=== PATIENT | male | born 1945 | race Caucasian/White ===

== ENCOUNTER 2017-12-04 18:42 | Emergency (ER) | payer MEDICARE ==
[2017-12-04] MEDS ORDERED: methylPREDNIS SUCC 125 MG/2ML IVP ONE (18:50)
--- NOTE | 2017-12-04 18:50 | ER Report ---
History and Physical Time Seen By MD: 18:42 HPI/ROS CHIEF COMPLAINT: shortness of breath HISTORY OF PRESENT ILLNESS: This is a 72 year old male. He called EMS from his home in [place]. He has been feeling poorly for a couple of days, but today had severe shortness of breath, sudden onset. He told the paramedics that he felt like he was going to . They used in line high flow oxygen with a CPAP device and used some sedation with Versed to help. Gave him 4 Albuterol treatments and a Atrovent treatment on the way here to [place], minimal improvement. Arrived here and minimally arousal with painful stimulation. His home health speech therapist is a neighbor and indicated that the patient is a FULL CODE. No further information is available at this time. EMS from [place] thought they had seen some ST elevation in the inferior leads with some reciprocal depression changes in the lateral leads on their EKGs. REVIEW OF SYSTEMS: Unable to obtain further. 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 Patient has a surgical history of multiple orthopedic surgeries, right eye surgery. Unable To Obtain Past Medical: Obtained from old records and from the paramedics who know him well. Reviewed Nurses Notes: Yes Hx Substance Use Disorder: No Hx Alcohol Use: Yes (BEER) Constitutional Vital Sign - Last 24 Hours 12/04/17 12/04/17 12/04/17 12/04/17 18:42 18:43 18:44 18:45 Temp 97.2 Pulse ??? 104 Resp 24 B/P (MAP) 133/70 (91) 133/70 96/77 (83) Pulse Ox 87 O2 Delivery CPAP 12/04/17 12/04/17 12/04/17 12/04/17 18:47 18:50 18:52 18:55 Pulse 108 101 Resp 18 19 B/P (MAP) 96/76 (83) 103/77 (86) Pulse Ox 83 96 12/04/17 12/04/17 12/04/17 12/04/17 18:57 18:58 19:00 19:00 Pulse 96 B/P (MAP) 95/79 (84) Pulse Ox 93 FiO2 80.0 100.0 12/04/17 12/04/17 12/04/17 12/04/17 19:02 19:05 19:07 19:10 Pulse 98 95 B/P (MAP) 103/83 (90) 101/73 (82) Pulse Ox 96 97 12/04/17 12/04/17 12/04/17 12/04/17 19:12 19:15 19:17 19:18 Pulse 92 96 Resp 25 B/P (MAP) 89/66 (74) 64/54 (57) Pulse Ox 95 95 12/04/17 12/04/17 12/04/17 12/04/17 19:20 19:22 19:23 19:25 Pulse 91 Resp 23 B/P (MAP) 64/44 (51) 86/65 (72) 74/58 (63) Pulse Ox 95 12/04/17 12/04/17 12/04/17 12/04/17 19:27 19:30 19:32 19:35 Pulse 92 Resp 13 6 B/P (MAP) 81/65 (70) 83/66 (72) 108/92 (97) Pulse Ox 97 96 12/04/17 12/04/17 12/04/17 12/04/17 19:37 19:42 19:44 19:47 Pulse 93 97 98 Resp 20 24 16 B/P (MAP) 142/114 (123) Pulse Ox 96 95 12/04/17 12/04/17 12/04/17 12/04/17 19:50 19:52 19:54 19:55 Pulse 93 Resp 15 B/P (MAP) 113/87 (96) 122/96 (105) 126/96 (106) Pulse Ox 95 12/04/1718 12/04/18 12/04/17 19:57 20:00 20:01 20:02 Pulse 93 87 Resp 16 12 B/P (MAP) 95/72 (80) 90/69 (76) Pulse Ox 96 96 8/3/18 8/3/18 8/3/18 8/3/18 20:05 20:07 20:10 20:12 Pulse 95 90 Resp 15 10 B/P (MAP) 111/87 (95) 93/73 (80) Pulse Ox 96 96 8/3/18 8/3/18 8/3/18 8/3/18 20:15 20:17 20:20 20:22 Pulse 90 90 Resp 15 16 B/P (MAP) 89/73 (78) 87/68 (74) Pulse Ox 96 97 8/3/18 8/3/18 8/3/18 8/3/18 20:25 20:27 20:30 20:32 Pulse 88 88 B/P (MAP) 89/70 (76) 90/70 (77) 8/3/18 8/3/18 8/3/18 8/3/18 20:35 20:40 20:42 20:45 Pulse 87 Resp 16 B/P (MAP) 90/71 (77) 88/73 (78) 89/74 (79) Pulse Ox 97 8/3/18 8/3/18 8/3/18 8/3/18 20:47 20:50 20:52 20:55 Pulse 87 87 Resp 12 B/P (MAP) 89/73 (78) 91/74 (80) Pulse Ox 97 8/3/18 8/3/18 8/3/18 8/3/18 20:57 21:00 21:02 21:05 Pulse 88 89 Resp 15 15 B/P (MAP) 90/73 (79) 102/81 (88) Pulse Ox 97 97 83/18 8/3/18 8/3/18 8/3/18 21:07 21:10 21:12 21:18 Pulse 89 89 89 Resp 15 16 16 B/P (MAP) 94/78 (83) Pulse Ox 95 94 92 8/3/18 8/3/18 8/3/18 8/3/18 21:20 21:23 21:25 21:28 Pulse 88 88 Resp 16 15 B/P (MAP) 92/73 (79) 91/72 (78) Pulse Ox 90 90 8/3/18 8/3/18 8/3/18 8/3/18 21:30 21:35 21:40 21:45 Pulse 86 Resp 16 B/P (MAP) 91/72 (78) 96/73 (81) 92/73 (79) 87/71 (76) Pulse Ox 88 12/04/17 12/04/17 21:47 21:50 Pulse 86 Resp 10 B/P (MAP) 88/69 (75) 86/68 (74) Pulse Ox 89 Physical Exam General Appearance: The patient is obtunded, is arousable to painful stimulation only, no meaningful interaction. Eyes: Pupils are equal, round. Reactive to light. No pallor or icterus. Has some injection. ENT: Mucous membranes are moist. Normal oral mucosa. Posterior oropharynx is normal with large amount of secretions. Normal tympanic membranes and canals. Neck: Supple and no apparent tenderness. No lymphadenopathy. Respiratory: Lungs with poor air movement throughout, coarse rales, expiratory wheezing. Switched to BiPAP, still working very hard to breath. Cardiovascular: Tachycardia, but regular rhythm. Normal capillary refill. Has 2 + lower extremity edema, trace at mid-tibia. Gastrointestinal: Abdomen is soft and no apparent tender. Does have some abdominal distension. Normal active bowel sounds. Genitourinary: Normal with placement of catheter. Neurological: Obtunded. Does arouse with pain. Does move all extremities voluntarily reaching for the mask. Skin: Warm and dry. No rashes. Musculoskeletal: No deformities or apparent pain. DIFFERENTIAL DIAGNOSIS: After history and physical exam, differential diagnosis was considered for severe shortness of breath with respiratory failure. Medical Decision Making Data Points Result Diagram: 12/04/17192512/04/171925 Laboratory Hematology Test 12/04/17 19:26 12/04/17 20:20 12/04/17 22:04 Red Blood Count 6.24 M/uL (4.00-5.60) Mean Corpuscular Volume 93.5 fL (80.0-96.0) Mean Corpuscular Hemoglobin 31.3 pg (26.0-33.0) Mean Corpuscular Hemoglobin Concent 33.5 g/dL (32.0-36.0) Red Cell Distribution Width 15.2 % (11.5-14.5) Mean Platelet Volume 7.5 fL (7.2-11.1) Neutrophils (%) (Auto) 83.6 % (39.4-72.5) Lymphocytes (%) (Auto) 8.5 % (17.6-49.6) Monocytes (%) (Auto) 6.2 % (4.1-12.4) Eosinophils (%) (Auto) 0.8 % (0.4-6.7) Basophils (%) (Auto) 0.9 % (0.3-1.4) Nucleated RBC Relative Count (auto) 0.0 /100WBC Neutrophils # (Auto) 12.2 K/uL (2.0-7.4) Lymphocytes # (Auto) 1.2 K/uL (1.3-3.6) Monocytes # (Auto) 0.9 K/uL (0.3-1.0) Eosinophils # (Auto) 0.1 K/uL (0.0-0.5) Basophils # (Auto) 0.1 K/uL (0.0-0.1) Nucleated RBC Absolute Count (auto) 0.00 K/uL D-Dimer Quantitative (PE/DVT) 0.37 ug/ml (0-0.50) Sodium Level 140 mmol/L (137-145) Potassium Level 4.7 mmol/L (3.5-5.0) Chloride Level 101 mmol/L (98-107) Carbon Dioxide Level 25 mmol/L (22-30) Blood Urea Nitrogen 13 mg/dl (9-21) Creatinine 0.80 mg/dl (0.66-1.25) Glomerular Filtration Rate Calc > 60.0 Random Glucose 146 mg/dl (75-110) Calcium Level 8.7 mg/dl (8.4-10.2) Total Bilirubin 0.6 mg/dl (0.2-1.3) Aspartate Amino Transf (AST/SGOT) 29 U/L (0-35) Alanine Aminotransferase (ALT/SGPT) 26 U/L (0-56) Alkaline Phosphatase 81 U/L (0-126) Troponin I 0.382 ng/ml B-Type Natriuretic Peptide 10 pg/ml (0-100) Total Protein 8.2 g/dl (6.3-8.2) Albumin 4.4 g/dl (3.5-5.0) Lactate 1.4 mmol/L (0.7-2.1) Blood Gas Puncture Site Right radial Blood Gas Patient Temperature 96.3 DEGREES Arterial Blood pH 7.18 (7.35-7.45) Arterial Blood Partial Pressure CO2 57 mmHg (32-37) Arterial Blood Partial Pressure O2 63 mmHg (60-80) Arterial Blood HCO3 22 mmol/L (20-26) Arterial Blood Oxygen Saturation 87 % (92-100) Arterial Blood Base Excess -7.0 mmol/L Jovani Test Nt avail Oxygen Liters/Minute 50% fi02 Chemistry Test 12/04/17 19:26 12/04/17 20:20 12/04/17 22:04 White Blood Count 14.5 k/uL (4.5-11.0) Red Blood Count 6.24 M/uL (4.00-5.60) Hemoglobin 19.5 g/dL (14.0-18.0) Hematocrit 58.3 % (42.0-52.0) Mean Corpuscular Volume 93.5 fL (80.0-96.0) Mean Corpuscular Hemoglobin 31.3 pg (26.0-33.0) Mean Corpuscular Hemoglobin Concent 33.5 g/dL (32.0-36.0) Red Cell Distribution Width 15.2 % (11.5-14.5) Platelet Count 268 K/uL (150-450) Mean Platelet Volume 7.5 fL (7.2-11.1) Neutrophils (%) (Auto) 83.6 % (39.4-72.5) Lymphocytes (%) (Auto) 8.5 % (17.6-49.6) Monocytes (%) (Auto) 6.2 % (4.1-12.4) Eosinophils (%) (Auto) 0.8 % (0.4-6.7) Basophils (%) (Auto) 0.9 % (0.3-1.4) Nucleated RBC Relative Count (auto) 0.0 /100WBC Neutrophils # (Auto) 12.2 K/uL (2.0-7.4) Lymphocytes # (Auto) 1.2 K/uL (1.3-3.6) Monocytes # (Auto) 0.9 K/uL (0.3-1.0) Eosinophils # (Auto) 0.1 K/uL (0.0-0.5) Basophils # (Auto) 0.1 K/uL (0.0-0.1) Nucleated RBC Absolute Count (auto) 0.00 K/uL D-Dimer Quantitative (PE/DVT) 0.37 ug/ml (0-0.50) Glomerular Filtration Rate Calc > 60.0 Calcium Level 8.7 mg/dl (8.4-10.2) Total Bilirubin 0.6 mg/dl (0.2-1.3) Aspartate Amino Transf (AST/SGOT) 29 U/L (0-35) Alanine Aminotransferase (ALT/SGPT) 26 U/L (0-56) Alkaline Phosphatase 81 U/L (0-126) Troponin I 0.382 ng/ml B-Type Natriuretic Peptide 10 pg/ml (0-100) Total Protein 8.2 g/dl (6.3-8.2) Albumin 4.4 g/dl (3.5-5.0) Lactate 1.4 mmol/L (0.7-2.1) Blood Gas Puncture Site Right radial Blood Gas Patient Temperature 96.3 DEGREES Arterial Blood pH 7.18 (7.35-7.45) Arterial Blood Partial Pressure CO2 57 mmHg (32-37) Arterial Blood Partial Pressure O2 63 mmHg (60-80) Arterial Blood HCO3 22 mmol/L (20-26) Arterial Blood Oxygen Saturation 87 % (92-100) Arterial Blood Base Excess -7.0 mmol/L Jovani Test Nt avail Oxygen Liters/Minute 50% fi02 Coagulation Test 12/04/17 19:26 D-Dimer Quantitative (PE/DVT) 0.37 ug/ml EKG/Imaging EKG Interpretation 12 lead EKG: Rhythm: Sinus tachycardia, rate 101 [place]: Left axis deviation QRS: Incomplete right bundle branch block ST segments: No ST elevation or depression noted on this EKG. Nonspecific T-wave changes Imaging CHEST SINGLE AP Indication: Shortness of breath.. Comparison: 02/19/2016. Findings: Cardiomediastinal silhouette and pulmonary vessels within normal limits. There is no focal infiltrate or lobar consolidation. No pneumothorax or pleural effusion. No nodule. Upper abdomen is unremarkable. No acute bony abnormality. IMPRESSION: 1. No acute cardiopulmonary process. Report Dictated By: Eran Cortez at 12/04/2017 7:12 PM Single view of the chest Indication: Intubation. Comparison: X-ray examination the chest December 04, 2017 Findings: Heart size within normal limits. There is been interval intubation. Tip of the endotracheal tube resides appropriately 6 cm from the rebecca. Lungs are clear. No pneumothorax or pleural effusion. IMPRESSION: 1. Appropriate positioning of endotracheal tube Report Dictated By: Nirav Apple MD at 12/04/2017 7:59 PM ED Course/Re-evaluation Clinical Indication for ER IV: Hydration, Hypotention, IV Access ED Course Upon arrival, it was clear that the patient's mental status was such that he needed airway protection and appeared to have respiratory failure needing the BiPAP. The patient is still working hard despite the BiPAP treatment. It was determined that point that we needed to intubate the patient. Pretreatment with ketamine, etomidate, and succinylcholine. Sedation was to be done with Versed IV. Intubation went well, no desaturations noted. Patient did have a drop in pressure and was bolused with IV fluids. We did arrange a Versed drip for sedation. Chest x-ray shows ET tube in good position. Also gave another dose of ketamine to help with sedation as well as hoping that the ketamine would improve airway by relaxing smooth muscle. Labs obtained, and his white count is elevated with a left shift. Electrolytes are normal, kidney function looks good with a BUN of 13 and creatinine of 0.80. Troponin came back elevated at 0.382. BNP is 10. D-dimer is negative at 0.37. Based on the patient's history of non-ST elevation MIs in the past, elevated troponin with sudden onset of shortness of breath, it's felt that he most likely has a shortness breath due to acute coronary syndrome, although COPD exacerbation could've caused the stress causing this to happen although uncertain. Procedure Procedure: Rapid sequence intubation. Indication for the procedure was respiratory failure and airway protection. The patient was preoxygenated with 100% oxygen by BiPAP. The patient was given the following IV medications: Etomidate, Ketamine and succinylcholine. The patient was orally endotracheally intubated using the Glidescope with a 7.5 ETT. In line stabilization was performed during the procedure. Tracheal intubation was confirmed by direct visualization; with misting on the tube; breath sounds were auscultated equally bilaterally; appropriate color change with CO2 detector. The patient was placed on the capnography monitor. Chest X-ray shows ETT in good position. The procedure was performed by my nurse practitioner under direct supervision. Decision to Disposition Date: Dec 04, 2017 Decision to Disposition Time: 20:18 Depart Departure Latest Vital Signs Vital Signs Date Time Temp Pulse Resp B/P (MAP) Pulse Ox O2 Delivery O2 Flow Rate FiO2 12/04/17 21:50 86 10 86/68 (74) 89 12/04/17 19:00 100.0 12/04/17 18:44 97.2 CPAP Impression: Primary Impression: Respiratory failure Additional Impression: Acute coronary syndrome Condition: Condition Unchanged Disposition: XFER TO [facility] Problem Qualifiers Primary Impression: Respiratory failure Chronicity: acute Respiratory failure complication: hypercapnia Qualified Codes: J96.02 - Acute respiratory failure with hypercapnia TRINI ROBERTSON MD Dec 04, 2017 18:50
[2017-12-04] MEDS ORDERED: KETAMINE HCL 500 MG/5 ML VIAL IVP ONE (19:00)
[2017-12-04] MEDS ORDERED: MIDAZOLAM 50 MG/10 ML VIAL 100 MG in NS(*) 0.9% 100 ML BAG 80 ML IV ONE (19:05)
--- NOTE | 2017-12-04 19:23 | RADIOLOGY IMAGING REPORT ---
FACILITY: [facility] PATIENT NAME: Nathanael Soliz : 1945 MR: [id number] V: [id number] EXAM DATE: ORDERING PHYSICIAN: TRINI ROBERTSON TECHNOLOGIST: Location: [facility] [place] Patient: Nathanael Soliz : 1945 Visit/Account:[id number] Date of Sevice: 12/04/2017 CHEST SINGLE AP Indication: Shortness of breath.. Comparison: 02/19/2016. Findings: Cardiomediastinal silhouette and pulmonary vessels within normal limits. There is no focal infiltrate or lobar consolidation. No pneumothorax or pleural effusion. No nodule. Upper abdomen is unremarkable. No acute bony abnormality. IMPRESSION: 1. No acute cardiopulmonary process. Report Dictated By: Eran Cortez at 12/04/2017 7:12 PM Report E-Signed By: Eran Cortez at 12/04/2017 7:19 PM WSN:[id number]
[2017-12-04] MEDS ORDERED: NOREPINE BITAR* 4 MG/4 ML AMP 4 MG in D5W(*) 250 ML BAG 246 ML IV ONE (19:25)
[2017-12-04 19:34] LABS: PLATELET COUNT, AUTOMATED 268 K/uL (150-450)
[2017-12-04] MEDS ORDERED: fentaNYL CITR 100 MCG/2 ML AMP IVP ONE (19:50)
--- NOTE | 2017-12-04 20:04 | RADIOLOGY IMAGING REPORT ---
FACILITY: [facility] [place] PATIENT NAME: Nathanael Soliz : 1945 MR: [id number] V: [id number] EXAM DATE: ORDERING PHYSICIAN: TRINI ROBERTSON TECHNOLOGIST: Location: [facility] Patient: Nathanael Soliz : 1945 Visit/Account:[id number] Date of Sevice: 12/04/2017 Single view of the chest Indication: Intubation. Comparison: X-ray examination the chest December 04, 2017 Findings: Heart size within normal limits. There is been interval intubation. Tip of the endotracheal tube resides appropriately 6 cm from the c blake. Lungs are clear. No pneumothorax or pleural effusion. IMPRESSION: 1. Appropriate positioning of endotracheal tube Report Dictated By: Nirav Apple MD at 12/04/2017 7:59 PM Report E-Signed By: Nirav Apple MD at 12/04/2017 8:00 PM WSN:[id number]
[2017-12-04] MEDS: NS(*) 0.9% 1000 ML BAG 1,000 ML IV ONE ×2 (21:30→22:30)
[2017-12-04 21:50] VITALS: BP 86/68
--- NOTE | 2017-12-04 23:19 | EKG ---
FACILITY: [facility] [place] PATIENT NAME: TRIPP SORENSEN : [id number] MR: [id number] V: [id number] EXAM DATE: ORDERING PHYSICIAN: TRINI ROBERTSON TECHNOLOGIST: JOHAN Thomas Reason : Blood Pressure : / mmHG Vent. Rate : 101 BPM Atrial Rate : 101 BPM P-R Int : 164 ms QRS Dur : 098 ms QT Int : 358 ms P-R-T Axes : 079 -67 087 degrees QTc Int : 464 ms Sinus tachycardia Left axis deviation , left anterior hemiblock Incomplete right bundle branch block Septal infarct , age undetermined Inferior infarct , age undetermined When compared with ECG of 19-FEB-2016 11:15, Incomplete right bundle branch block is now present Septal infarct is now present Inferior infarct is now present T wave inversion now evident in Lateral leads Confirmed by MONICA TODD ([id number] on 12/05/2017 2:46:27 AM Referred By: AILYN Confirmed By:MONICA TODD
[2017-12-05] MEDS ORDERED: EMS LR(*) 1000 ML BAG 1,000 ML IV ONE ×2 (02:20)
[2017-12-05] MEDS ORDERED: EMS NS 0.9%(*) 1000 ML BAG 1,000 ML IV ONE (02:20)
[2017-12-05] MEDS ORDERED: NS(*) 0.9% 1000 ML BAG 1,000 ML IV ONE ×2 (02:20)
[2017-12-05] MEDS ORDERED: ETOMIDATE 20 MG/10 ML VIAL IVP ONE (03:15)
[2017-12-05] MEDS ORDERED: SUCCINYLCHOL CHL 200MG/10ML VL IVP ONE (03:15)
== END 2017-12-04 22:37 | disposition short-term general hospital (02) ==
LOC: ER 18:48
DX: J96.02 Acute respiratory failure with hypercapnia (principal); I24.9 Acute ischemic heart disease, unspecified
CPT/HCPCS: 31500; 36415; 36600; 71045; 82803; 83605; 83880; 84484; 85025; 85379; 87040; 93005; 94002; 94660; 96365; 96375; 99285; C1758; J0330; J2250; J2930; J3010; J3490; J7030; J7050; J7120; 82040; 82247; 82310; 82374; 82435; 82565; 82947; 84075; 84132; 84155; 84295; 84450; 84460; 84520

== ENCOUNTER → 2017-12-04 | Outpatient (REF) ==
[~2017-12-04] MED LIST: ASPI-879 PO; BUPR-147 PO; IBUP100T54 PO
== END ==
LOC: AMB 21:02
PROVIDERS: ATTEND Nurse Practitioner
DX: Z76.89 Persons encountering health services in other specified circumstances (principal)